=== PATIENT | female | born 1965 | race Hispanic/Latino ===

== ENCOUNTER 2025-06-30 03:14 | Emergency (ER) | payer SELFPAY ==
[2025-06-30 03:17] VITALS: BP 166/99
[2025-06-30] MEDS: BENADRYL 50 MG PO (06:41)
[2025-06-30 06:44] LABS: Hematocrit 34.1 % (37.0-47.0); Hemoglobin 11.2 g/dL (12.0-16.0); Mean Corp Hgb Conc. 32.8 g/dL (33.0-37.0); Mean Corpuscular Volume 87.4 fL (81.0-99.0); Nucleated Red Blood Cells % 0 %; Platelet Count 358 10^3/uL (130-400); Red Cell Dist. Width 13.1 % (11.5-14.5)
--- NOTE | 2025-06-30 06:44 | ED.GENMED ---
History of Present Illness
General
Chief Complaint: Allergic Reaction
Source: patient and family
Time Seen by Provider: 06/30/25 06:19
History of Present Illness
History of Present Illness:
60-year-old female with past medical history of [id number] diabetes presenting to the emergency department for evaluation after she started with generalized body itching mainly along the chest, right upper extremity and back with symptoms
ongoing since Friday. Patient notes no rashes associated with this, there is no pain, fevers or infectious symptoms. Denies any history of similar. Patient had 'injections in her eyes due to diabetic retinopathy yesterday' but states that she
was having the itching prior to this and has had this procedure before without any complications in the past. Patient did not take anything for symptoms prior to arrival. She notes no new medications, clothing, soaps, detergents or any other
potential aggravating factors.
Past History
Past History
ED Past Medical History: NIDDM
ED Past Surgical History: None
Social History
Tobacco: Non-smoker
Alcohol: None
Drug: None
Personal: Single
Living: with family
Review of Systems
Review of Systems
All Other Systems: ROS reviewed and negative except as documented in HPI and ROS
Phy Exam
Physical Exam
Physical Exam:
GENERAL: Alert , in no apparent distress but is constantly scratching her right arm and chest
EYE: clear conjunctiva b/l
HEAD: NCAT
ENT: o/p clr, mmm.
CARDIAC: Regular rate and rhythm .
LUNGS: Clear breath sounds bilaterally, no acute respiratory distress, no wheezes/rales/rhonchi
ABDOMEN: Soft, without focal tenderness, no r/g, no cvat
NEUROLOGICAL: Alert and oriented
SKIN: Warm and dry, skin intact.
MUSCULOSKELETAL: No edema, well perfused.
PSYCH: Normal and appropriate interaction.
Scores
Heart Failure Risk
Heart Failure Risk Score: Not Applicable
Heart Score for Chest Pain Patients
STEMI patient?: Not applicable
Withdrawal Assessment of Alcohol
Withdrawal Assessment Completed?: Not applicable
Course
Orders/Labs/Results
Orders:
Orders
06/30/25 06:28
Diphenhydramine [Benadryl] 50 mg PO NOW STA
06/30/25 06:38
Complete Blood Count/With Diff Urgent
Comprehensive Metabolic Panel Urgent
Abnormal Lab Results
06/30/25
06:38
RBC 3.90 L 10^6/uL
(4.20-5.40)
Hgb 11.2 L g/dL
(12.0-16.0)
Hct 34.1 L %
(37.0-47.0)
MCHC 32.8 L g/dL
(33.0-37.0)
BUN 28 H mg/dl
(7-17)
Creatinine 1.1 H mg/dL
(0.6-1.0)
Glucose 113 H mg/dl
(70-99)
06/30/25 06:38
06/30/25 06:38
Vital Signs
Initial and Last Documented VS:
Initial Vital Signs
Temp Pulse Resp BP Pulse Ox
97.8 F 106 22 166/99 99
06/30/25 03:17 06/30/25 03:17 06/30/25 03:17 06/30/25 03:17 06/30/25 03:17
Last Documented Vital Signs
Temp Pulse Resp BP Pulse Ox
97.8 F 106 22 166/99 99
06/30/25 03:17 06/30/25 03:17 06/30/25 03:17 06/30/25 03:17 06/30/25 06:47
MDM/Problems Addressed
Differential Diagnosis Includes:
Biliary induced pruritus
Contact dermatitis
Food allergy
Diabetic complication
MDM/Problems Addressed:
60-year-old female presenting for evaluation of generalized pruritus which started 2 days ago. Did not take anything for symptoms. Hemodynamically stable, no acute distress. Unclear etiology for pruritus at this time but doubt emergent pathology.
When patient has had labs drawn here her glucose has been greater than 300, will check labs and urine. Benadryl for pruritus. Disposition pending.
Chronic conditions affecting care: DM
*Pulse Oximetry
SaO2: 99
Oxygen Mode of Delivery: Room air
Patient hypoxic: no
*Critical Care Note
Total Time (30-74mins, 75-104mins- exclusive of procedures): Not Applicable
Patient Management
Escalation/DeEscalation of care consider admission/obs:
Patient's symptoms improved. Labs reassuring. Stable for discharge home.
ED Attending Note
-
Portions of this chart may have been created with voice recognition software.� Occasional wrong word or��sound alike� substitutions may have occurred due to the inherent limitations of voice recognition software.
Discharge Plan
Departure
Patient Disposition: Home (Routine Discharge)
Date of Disposition: 06/30/25
Time of Disposition: 07:44
Patient with high blood pressure during this ER visit?: Yes
Discharge Problem:
Pruritus
Instructions: Itchy skin
Prescriptions:
New
diphenhydramine HCl 25 mg tablet
25 mg PO TID PRN (Reason: itching) Qty: 20 0RF
Rx Instructions:
Take 1-2 tabs q6h PRN for itching
No Action
glipizide 10 mg tablet
10 mg PO BID Qty: 60 0RF
metformin 1,000 mg tablet
1,000 mg PO BID Qty: 60 0RF
meloxicam 15 mg tablet
15 mg PO DAILY Qty: 10 0RF
pantoprazole [Protonix] 40 mg tablet,delayed release (DR/EC)
40 mg PO DAILY 14 Days Qty: 14 0RF
glipizide 10 mg tablet
10 mg PO BID 30 Days Qty: 60 0RF
metformin 1,000 mg tablet
1,000 mg PO BID 30 Days Qty: 60 0RF
Referrals:
[facility] [Outside]
NONE,* [Family Provider, Internal Medicine]
Interventions
Interventions:
*General Assessment Last Done: 06/30/25 07:59
*Neglect/Abuse Screening Last Done: 06/30/25 07:59
*ED COVID-19 Vaccine History Last Done: 06/30/25 07:59
*ED Influenza Vaccine History Last Done: 06/30/25 07:59
*Risk Screen - Suicide (C-SSRS) Last Done: 06/30/25 03:17
*Nursing Disposition Last Done: 06/30/25 08:00
ED- Cardiac Assessment Last Done: 06/30/25 07:34
ED- Pulmonary Assessment Last Done: 06/30/25 07:34
ED-Skin Assessment Last Done: 06/30/25 07:34
Discharge Date and Time
Discharge Date/Time: 06/30/25 08:00
Print Language: SAUDI ARABIAN
[2025-06-30 07:01] LABS: ALT (SGPT) 18 U/L (0-35); AST (SGOT) 23 U/L (14-36); Albumin 3.9 g/dl (3.5-5.0); Alkaline Phosphatase 111 U/L (38-126); Blood Urea Nitrogen 28 mg/dl (7-17); Calcium 8.7 mg/dl (8.4-10.2); Carbon Dioxide 24 mmol/L (22-30); Chloride 103 mmol/L (98-107); Glucose 113 mg/dl (70-99); Potassium 4.6 mmol/L (3.5-5.1); Sodium 135 mmol/L (135-145); Total Protein 7.7 g/dl (6.3-8.2); eGFR 58.24
== END 2025-06-30 08:00 | disposition home or self-care (01) ==
LOC: EMR 03:14
PROVIDERS: Physician Assistant Medical; EMERGENCY PHYSICIAN Student in an Organized Health Care Education/Training Program
DX: L29.9 Pruritus, unspecified (principal); E11.319 Type 2 diabetes mellitus with unspecified diabetic retinopathy without macular edema
CPT/HCPCS: 99283; 80053; 85025